=== PATIENT | female | born 1940 | race Caucasian/White ===

== ENCOUNTER → 2016-10-26 | Outpatient (CLI) | payer MEDICARE, OTHER | LOC: RAD 10:42 | PROVIDERS: ATTEND Nurse Practitioner Family | DX: L89.893 Pressure ulcer of other site, stage 3 (principal) ==

== ENCOUNTER → 2016-10-31 | Outpatient (CLI) | payer MEDICARE, OTHER ==
--- NOTE | 2016-11-01 10:29 | XCELERA REPORT ---
[address] [address] Lower Extremity Arterial Evaluation Name: GUILLERMINA GARDNER Age: 76 yrs Gender: Female : 1940 Patient Status: Outpatient Patient Location: Study Date: 10/31/2016 03:24 PM Procedure: A color flow and duplex scan of the lower extremity arteries was performed bilaterally with velocity and waveform anaylsis. 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 Biphasic to the infrageniculate vessels. The ankle-brachial index is 0.98. 0-19 % stenosis is noted at the infrageniculate vessels. Left Side Arterial Evaluation Normal velocity, waveform and triphasic flow are present, in the Common Femoral artery the Femoral artery. Biphasic in the Deep Femoral. Biphasic from the Popliteal to the infrageniculate vessels. The ankle-brachial index is 1.01. 0-19 % stenosis is noted at the Popliteal artery. Interpretation Summary Mild hemodynamically significant lesions in the bilateral lower extremities, on duplex imaging, at rest. : SYMONE PELLETIER > Ganga Dickson
== END ==
LOC: SP 14:53
PROVIDERS: ATTEND Nurse Practitioner Family
DX: L89.893 Pressure ulcer of other site, stage 3 (principal)
CPT/HCPCS: 93925

== ENCOUNTER 2016-12-15 08:27 | Day surgery (SDC) | payer MEDICARE, OTHER ==
[~2016-12-15 08:27] MED LIST: DIPHENHYDRAMINE HCL 50 MG/ML VIAL ONE; EPINEPHRINE INJ 1 MG/10 ML DISP.SYRIN ONE; FENTANYL CITRATE INJ/PF 100 MCG/2 ML AMPUL ONE; FLUMAZENIL INJ 0.5 MG/5 ML VIAL IV ONE; GLUCAGON,HUMAN RECOMB 1 MG INJ ONE; NALOXONE HCL INJ/PF 0.4 MG/1 ML SDV ONE; ONDANSETRON HCL INJ/PF 4 MG/2 ML SDV ONE; PROMETHAZINE HCL INJ 25 MG/1 ML VIAL ONE
[2016-12-15] MEDS: MIDAZOLAM 2 MG/2 ML INJ ONE ×2 (09:17→09:25)
--- NOTE | 2016-12-15 09:37 | Operative Report ---
Operative Report DATE OF SURGERY: 12/15/16 Operative Report: The risks benefits and alternatives of the procedure explained to the patient in detail and informed consent is obtained that GIF Olympus video scope was inserted into the patient's mouth and hypopharynx the esophagus is identified intubated and insufflated the scope was then advanced through the esophagus stomach and duodenum retroflexion maneuver is done the esophagus stomach and first and second portions of the duodenum examined PREOPERATIVE DIAGNOSIS: Esophageal stricture POSTOPERATIVE DIAGNOSIS: Same as above. Status post dilatation 10 mm for minute followed by 12 mm for 1-1/2 minutes. Hiatal hernia OPERATION: EGD with balloon dilation SURGEON: OANH GREENBERG ANESTHESIA: Moderate Sedation - 4 mg of Versed, 25 g of fentanyl. Conscious sedation time 30 minutes. TISSUE REMOVED OR ALTERED: None. COMPLICATIONS: None. ESTIMATED BLOOD LOSS: none. INTRAOPERATIVE FINDINGS: Noted above. PROCEDURE: She tolerated the procedure well. No immediate postprocedure complications are noted. Patient discharged in good condition. Discharge date 12/15/2016. Discharge diet: Regular. Discharge activity: Regular. 2-3 week follow-up to discuss findings. Repeat dilatation in 6-8 weeks. Patient is instructed to call the office or proceed to the emergency room to any further problems or questions.
[2016-12-15 10:36] VITALS: BP 98/54
== END 2016-12-15 11:00 | disposition other institution (70) ==
LOC: END 08:27
PROVIDERS: ATTEND Internal Medicine Gastroenterology
PROC: 0D758ZZ Dilation of Esophagus, Via Natural or Artificial Opening Endoscopic (ICD-10-PCS; principal; 2016-12-15 09:00)
DX: K22.2 Esophageal obstruction (principal); R22.2 Localized swelling, mass and lump, trunk; Z79.82 Long term (current) use of aspirin; Z79.899 Other long term (current) drug therapy
CPT/HCPCS: 43249; C1726; J2250; J3010; J0171; J1200; J1610; J2310; J2405; J2550; J3490

== ENCOUNTER → 2016-12-22 | Outpatient (CLI) | payer MEDICARE, OTHER | LOC: RAD 12:57 | PROVIDERS: ATTEND Internal Medicine | DX: R22.2 Localized swelling, mass and lump, trunk (principal) | CPT/HCPCS: 71250 ==

== ENCOUNTER → 2018-01-22 | Outpatient (CLI) | payer MEDICARE, OTHER, MEDICAID ==
--- NOTE | 2018-01-22 14:46 | RADIOLOGY REPORT (SQ) ---
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 TECHNIQUE: AP and lateral radiographic images acquired of the thoracic spine. LIMITATIONS: None. FINDINGS: MINERALIZATION: Normal. ALIGNMENT: Scoliosis convex right apex L1. VERTEBRAE: Extensive treated and untreated compression fractures without change from the previous holly dy. DISCS: Diffuse degenerative disc disease thoracolumbar junction. HARDWARE: None in the spine. MEDIASTINUM AND SOFT TISSUES: Normal heart size and aortic contour. No soft tissue abnormality. VISUALIZED LUNG GOODWIN: Clear. OTHER: No radio opaque foreign body identified at the site of concern. No plain film evidence for os teomyelitis. IMPRESSION: Stable appearance. No plain film evidence for osteomyelitis. TECHNICAL DOCUMENTATION: JOB ID: [id number] Setup- All Rights Reserved Reading location - IP/workstation name: [email or web address]
== END ==
LOC: RAD 12:52
PROVIDERS: ATTEND Nurse Practitioner
DX: L89.104 Pressure ulcer of unspecified part of back, stage 4 (principal)
CPT/HCPCS: 72070

== ENCOUNTER 2019-08-05 17:34 | Emergency (ER) | payer MEDICARE, OTHER, MEDICAID ==
--- NOTE | 2019-08-05 17:41 | ER Document Report ---
ED General - General Chief Complaint: Abnormal Lab Results Stated Complaint: ABNORMAL LABS Time Seen by Provider: 08/05/19 17:39 Primary Care Provider: RICKEY MERIDA MD [ACTIVE STAFF] - Follow up in 1 week NEY CHRISTINE DO [ACTIVE STAFF] - Follow up in 3-5 days Notes: Patient is a 78-year-old female with history of anemia that presents to the emergency department for chief complaint of anemia hemoglobin 7.7 as outpatient blood work. Patient states that she was having blood work done for possible knee operation, and was told that her hemoglobin was 7.7 and that she has come to the emergency department. She was sent over from her nursing facility. She states she is occasionally felt lightheaded, but has not had syncopal episodes, and she does get fatigued easily but something that she is been noticing are bothering her on a regular basis. She denies having any black or tarry stools, denies having any chest pain, shortness of breath or difficulty breathing. She also denies any recent fevers, chills, night sweats, cough, nausea, vomiting or abdominal pain. Past Medical History: Anemia, arthritis, heart murmur Past Surgical History: Knee surgery Social History: Denies tobacco, alcohol or drug use, lives in a senior care. Family History: Reviewed and noncontributory for presenting illness Allergies: Reviewed, see documented allergy list. REVIEW OF SYSTEMS: Other than noted above, the 12 point review of systems was reviewed with the patient and were negative, all pertinent findings are included in the HPI. PHYSICAL EXAMINATION: Vital signs reviewed, nursing noted reviewed. GENERAL: Elderly female, no acute distress HEAD: Atraumatic, normocephalic. EYES: Eyes appear normal, extraocular movements intact, sclera anicteric, conjunctiva are normal. ENT: nares patent, oropharynx clear without exudates. Moist mucous membranes. NECK: Normal range of motion, supple without lymphadenopathy LUNGS: Breath sounds clear to auscultation bilaterally and equal. No wheezes rales or rhonchi. HEART: Regular rate and rhythm, 3/6 systolic murmur noted ABDOMEN: Soft, nontender, normoactive bowel sounds. No rebound, guarding, or rigidity. No masses appreciated. EXTREMITIES: Nontender, good range of motion, 1+ edema to the lower extremity's bilaterally, equal, no erythema NEUROLOGICAL: No focal neurological deficits. Moves all extremities spontaneously Motor and sensory grossly intact on exam. PSYCH: Normal mood, normal affect. SKIN: Warm, Dry, normal turgor, over the patient's left knee, there is some drainage medially, apparently this is chronic according to her son is at bedside, but is being managed by orthopedics. There is granular tissue, and some purulent drainage from the skin at this site with mild surrounding erythema. No tenderness with palpation currently. TRAVEL OUTSIDE OF THE [place] IN LAST 30 DAYS: No - Related Data Allergies/Adverse Reactions: edmond Allergy (Unknown, Verified 12/15/16 08:44) Hives, facial swelling Penicillins Allergy (Unknown, Verified 12/15/16 08:44) doesn't remember Past Medical History - Social History Smoking Status: Never Smoker Family History: Reviewed & Not Pertinent - Past Medical History Cardiac Medical History: Reports: Hx Hypertension Denies: Hx Coronary Artery Disease, Hx Heart Attack Pulmonary Medical History: Denies: Hx Asthma, Hx Bronchitis, Hx COPD, Hx Pneumonia Neurological Medical History: Denies: Hx Cerebrovascular Accident, Hx Seizures Malignancy Medical History: Reports: Hx Skin Cancer Musculoskeletal Medical History: Reports Hx Arthritis - OA Past Surgical History: Reports: Hx Hysterectomy, Hx Neurologic Surgery - tumor/cancer removal, Hx Orthopedic Surgery - L knee - Immunizations Hx Diphtheria, Pertussis, Tetanus Vaccination: No Physical Exam - Vital signs Vitals: Resp 22 H 08/05/19 17:46 Course - Re-evaluation Re-evalutation: Patient seen and examined vital signs reviewed. Laboratory data and/or imaging were ordered as appropriate for the patient's presenting symptoms and complaint, with consideration of any critical or life threatening conditions that may be associated with their obtained history and exam as noted above. Results were reviewed when available and demonstrated anemia with hemoglobin of 8.9, significantly improved from blood work drawn recently, therefore no need for blood transfusion, patient may need iron transfusion in the future as she is microcytic, likely chronic iron deficiency anemia, given referral to hematology, patient otherwise advised to follow-up with orthopedic surgeon, her dressing was changed on her left knee. The patient was re-evaluated and was stable Evaluation was most consistent with anemia Results were discussed with the patient at this point, after careful consideration I feel that that patient can be discharged from the emergency department, the patient was educated treatments and reasons to return to the e mergency department based on their presumed diagnosis as noted above, they were advised to followup with a primary care physician in 2-3 days. Patient was agreeable to plan of care. *Note is created using voice recognition software and may contain spelling, syntax or grammatical errors. Laboratory 08/05/19 08/05/19 08/05/19 17:54 17:54 17:54 WBC 5.5 RBC 3.61 L Hgb 8.9 L Hct 27.8 L MCV 77 L MCH 24.5 L MCHC 31.9 L RDW 22.2 H Plt Count 356 Lymph % (Auto) 18.9 [place] % (Auto) 7.9 Eos % (Auto) 11.2 H Baso % (Auto) 0.3 Absolute Neuts (auto) 3.4 Absolute Lymphs (auto) 1.0 Absolute Monos (auto) 0.4 Absolute Eos (auto) 0.6 Absolute Basos (auto) 0.0 Seg Neutrophils % 61.7 PT 14.2 INR 1.10 APTT 36.9 H Sodium 138.0 Potassium 4.1 Chloride 104 Carbon Dioxide 28 Anion Gap 6 BUN 9 Creatinine 0.78 Est GFR ( Amer) > 60 Est GFR (MDRD) Non-Af > 60 Glucose 106 Calcium 8.7 Total Bilirubin 0.3 Direct Bilirubin 0.2 Neonat Total Bilirubin Not Reportable Neonat Direct Bilirubin Not Reportable Neonat Indirect Bili Not Reportable AST 24 ALT 11 Alkaline Phosphatase 56 Total Protein 6.1 L Albumin 3.2 L - Vital Signs Vital signs: Temp Pulse Resp BP Pulse Ox 97.9 F 70 20 164/69 H 08/05/19 18:01 08/05/19 18:00 08/05/19 18:00 08/05/19 18:00 - Laboratory Result Diagrams: 08/05/19 17:54 08/05/19 17:54 Laboratory results interpreted by me: 08/05/19 08/05/19 08/05/19 17:54 17:54 17:54 RBC 3.61 L Hgb 8.9 L Hct 27.8 L MCV 77 L MCH 24.5 L MCHC 31.9 L RDW 22.2 H Eos % (Auto) 11.2 H APTT 36.9 H Total Protein 6.1 L Albumin 3.2 L Discharge - Discharge Clinical Impression: Anemia Qualifiers: Anemia type: unspecified type Qualified Code(s): D64.9 - Anemia, unspecified Condition: Stable Disposition: HOME, SELF-CARE Instructions: Anemia, Iron Deficiency ([facility]) Additional Instructions: Please follow-up with Dr. Christine regarding your knee, your blood counts today, did not reflect need for a blood transfusion. You may benefit from iron transfusions in the future, a heel seat laster has been listed with your discharge paperwork to follow-up with, these can be set up as an outpatient. Referrals: NEY CHRISTINE DO [ACTIVE STAFF] - Follow up in 3-5 days RICKEY MERIDA MD [ACTIVE STAFF] - Follow up in 1 week
[2019-08-05 18:06] LABS: ABSOLUTE MONOCYTES (AUTO) 0.4 10^3/uL (0.1-1.4); ABSOLUTE NEUT (AUTO) 3.4 10^3/uL (1.7-8.2); TOTAL CELLS COUNTED % (AUTO) 100 %
[2019-08-05 18:11] LABS: ABSOLUTE EOSINOPHILS # (AUTO) 0.6 10^3/uL (0.0-0.6); BASOPHILS % (AUTO) 0.3 % (0-2); EOSINOPHILS % (AUTO) 11.2 % (0-6); HEMATOCRIT 27.8 % (36.0-47.0); HEMOGLOBIN 8.9 g/dL (12.0-15.5); LYMPHOCYTES % (AUTO) 18.9 % (13-45); MEAN CORPUSCULAR HEMOGLOBIN 24.5 pg (27.0-33.4); MEAN CORPUSCULAR HGB CONC 31.9 g/dL (32.0-36.0); MEAN CORPUSCULAR VOLUME 77 fl (80-97); MONOCYTES % (AUTO) 7.9 % (3-13); PLATELET COUNT 356 10^3/uL (150-450); RED BLOOD COUNT 3.61 10^6/uL (3.72-5.28); RED CELL DISTRIBUTION WIDTH 22.2 % (11.5-14.0); SEGMENTED NEUTROPHILS % (AUTO) 61.7 % (42-78); WHITE BLOOD COUNT 5.5 10^3/uL (4.0-10.5)
[2019-08-05 18:13] LABS: PROTHROMBIN TIME 14.2 SEC (11.4-15.4)
[2019-08-05 18:14] LABS: PARTIAL THROMBOPLASTIN TIME 36.9 SEC (23.5-35.8)
[2019-08-05 18:27] LABS: ALBUMIN 3.2 g/dL (3.5-5.0); ALKALINE PHOSPHATASE 56 U/L (38-126); ANION GAP 6 (5-19); ASPARTATE AMINO TRANSFERASE 24 U/L (14-36); BILIRUBIN,DIRECT 0.2 mg/dL (0.0-0.4); BILIRUBIN,TOTAL 0.3 mg/dL (0.2-1.3); BLOOD UREA NITROGEN 9 mg/dL (7-20); CALCIUM 8.7 mg/dL (8.4-10.2); CARBON DIOXIDE 28 mmol/L (22-30); CHLORIDE 104 mmol/L (98-107); GLUCOSE 106 mg/dL (75-110); POTASSIUM 4.1 mmol/L (3.6-5.0); TOTAL PROTEIN 6.1 g/dL (6.3-8.2)
[2019-08-05 20:03] VITALS: BP 163/60
[2019-08-05] MEDS ORDERED: NORMAL SALINE 1000 ML 1,000 ML IV ONE (20:14)
== END 2019-08-05 20:28 | disposition home or self-care (01) ==
LOC: ER 17:34
DX: D64.9 Anemia, unspecified (principal); R42 Dizziness and giddiness; R53.83 Other fatigue; I10 Essential (primary) hypertension
CPT/HCPCS: 36415; 80053; 85610; 85730; 86850; 86900; 86901